=== PATIENT | male | born 1990 ===

== ENCOUNTER 2016-11-06 00:36 | Emergency (ER) | payer SELFPAY ==
[2016-11-06 00:50] VITALS: BP 143/82; PULSE 82; RESP 20; TEMP 98; O2SAT 98
--- NOTE | 2016-11-06 01:43 | C.PDOC ---
History Of Present Illness 26 yo male come in for evaluation of painful swelling over occipital scalp developed for past 3-4 days. Today, noted some draining. Pt admits, had hair cut 1 week ago. Otherwise, pt denies fever, chills, headache, dizziness, vertigo , neck pain, denies known trauma or injury. Ambulate to ED for evaluation, not n any apparent distress. Time Seen by Provider: 11/06/16 01:13 Chief Complaint (Nursing): Abnormal Skin Integrity History Per: Patient Onset/Duration Of Symptoms: Gradual Current Symptoms Are (Timing): Worse Past Medical History Reviewed: Historical Data, Nursing Documentation, Vital Signs Vital Signs: Last Vital Signs Temp 98 F 11/06/16 00:49 Pulse 82 11/06/16 00:49 Resp 20 11/06/16 00:49 BP 143/82 11/06/16 00:49 Pulse Ox 98 11/06/16 00:49 - Medical History PMH: No Chronic Diseases Surgical History: No Surg Hx Family History: States: No Known Family Hx - Social History Hx Alcohol Use: Yes Hx Substance Use: No - Immunization History Hx Tetanus Toxoid Vaccination: Yes Hx Influenza Vaccination: No Hx Pneumococcal Vaccination: No Review Of Systems Except As Marked, All Systems Reviewed And Found Negative. Constitutional: Negative for: Fever, Chills Eyes: Negative for: Vision Change ENT: Negative for: Ear Discharge, Nose Discharge, Mouth Pain, Mouth Swelling, Throat Pain Skin: Positive for: Lesions Neurological: Negative for: Weakness, Numbness, Altered Mental Status, Headache , Dizziness Physical Exam - Physical Exam Appears: Well, Non-toxic, No Acute Distress Skin: Normal Color, Warm, Other ((+)1cm tender induration noted to occipital scalp with erythema, mild purulent discharges noted. No flactulance. No proximal streaking.) Head: Atraumatic, Normacephalic Eye(s): bilateral: PERRL Ear(s): Bilateral: Normal Nose: Normal, No Discharge Oral Mucosa: Moist Tongue: Normal Appearing Throat: Normal, No Erythema, No Exudate, No Drooling Neck: Normal, Normal ROM, Trachea Midline, No Midline Cervical Tenderness, No Paracervical Tenderness, No Step Off Deformity, Supple Lymphatic: Normal Exam (cervical and submandibular) Extremity: Normal ROM, No Deformity Neurological/Psych: Oriented x3, Normal Speech, Normal Motor, Normal Sensation, Normal Reflexes ED Course And Treatment O2 Sat by Pulse Oximetry: 98 Pulse Ox Interpretation: Normal Progress Note: Wound Cx obtained and sent to lab. On re-evaluation. pt is afebrile, hemodynamicaly stable. Non-toxic. PulsEOx 98% RA. Head: AT/NC. neck: (-) meningeal sign. ENT: no acute findings. Neurologicaly intact. Skin : exam c/w occipital scalp furuncle, selg draining. No flactulance. Pt denies allergy to medictaion, ABx given ,pt advised on course of ds. ref. to f/u with pmd in 2-3 days for re-eval. return if any new changes. Disposition Counseled Patient/Family Regarding: Studies Performed, Diagnosis, Need For Followup, Rx Given - Disposition Referrals: [facility] [Outside] Disposition: HOME/ ROUTINE Disposition Time: 01:39 Condition: STABLE Additional Instructions: WARM SALTY WATER COMPRESSES TO WOUND TAKE MEDICATION PRESCRIBED FOLLOW UP WITH PMD IN 2-2 DAYS FOR RE-EVALUATION. RETURN TO ED IF ANY WORSENING OR NEW CHANGES. Prescriptions: Doxycycline Hyclate [Doryx] 100 mg PO BID #14 cap Instructions: Furunculosis and Carbunculosis (ED) Print Language: MONGOLIAN - Clinical Impression Clinical Impression: Furuncle
== END 2016-11-06 01:58 | disposition home or self-care (01) ==
LOC: C.ER 00:36
DX: L02.821 Furuncle of head [any part, except face] (principal)